=== PATIENT | male | born 1970 | race African-American/Black ===

== ENCOUNTER 2018-09-20 14:51 | Emergency (ER) | payer OTHER ==
[~2018-09-20] VITALS: Ht 177.8 cm; Wt 88.4 kg
[2018-09-20 15:16] VITALS: BP 146/97; PULSE 94; RESP 18; Ht 177.8 cm; Wt 88.4 kg
[2018-09-20] MEDS ORDERED: HYDR25TA6 PO (17:26)
--- NOTE | 2018-09-20 17:33 | ERD ---
ER Documentation Chief Complaint Chief Complaint here for htn, bp 146/97 HPI 40-year-old male presents for elevated blood pressure at home. He states that the blood pressures been elevated for about 10 days. He states that it has been averaging about 170/100. He does not have a history of hypertension. He states that he was seen by his primary care physician about a month ago and was noted to have 140/80 blood pressure. He denies any significant past medical history. Denies any symptoms currently. ROS All systems reviewed and are negative except as per history of present illness. Medications Home Meds Active Scripts Hydrochlorothiazide* (Hydrochlorothiazide*) 25 Mg Tab, 12.5 MG PO DAILY for elevated blood pressure, #30 TAB Prov:ISABELLA RADER DO 09/20/18 Allergies Allergies: Coded Allergies: No Known Allergy (Unverified , 09/20/18) PMhx/Soc Medical and Surgical Hx: pt denies Medical Hx, pt denies Surgical Hx Hx Alcohol Use: Yes Hx Substance Use: Yes Hx Tobacco Use: Yes Smoking Status: Current every day smoker Physical Exam Vitals Vital Signs Date Temp Pulse Resp B/P (MAP) Pulse Ox O2 O2 Flow FiO2 Time Delivery Rate 09/20/18 97.6 94 18 146/97 98 15:16 (113) Physical Exam Const: No acute distress Cardio: Regular rate and rhythm, no murmurs Abd: Soft, non tender, non distended. Normal bowel sounds Skin: No petechiae or rashes Back: No midline or flank tenderness Ext: No cyanosis, or edema Neur: Awake and alert Psych: Normal Mood and Affect Procedures/MDM Medical Decision Making: Patient presented for elevated blood pressure at home. He states that he was concerned about having a stroke. He states that the blood pressure measured at home has been 170/100. Last official read at his primary care doctor's office was about a month ago which was 140/80. Vital signs reviewed here in the ER and noted to be 146/97 Given the patient's age and the elevated blood pressure on multiple readings, patient started on hydrochlorothiazide and advised to follow with his primary care physician. Patient appeared well on physical exam. Prescription(s): Patient given prescription for hydrochlorothiazide. Patient advised to follow up with PCP in 1-2 days. Patient advised to return to ED for new or worsening symptoms. Patient stable on discharge from the ED. Disclaimer: Inadvertent spelling and grammatical errors are likely due to EHR/dictation software use and do not reflect on the overall quality of patient care. Also, please note that the electronic time recorded on this note does not necessarily reflect the actual time of the patient encounter. Departure Diagnosis: Primary Impression: Elevated blood pressure reading Condition: Fair Patient Instructions: High Blood Pressure (Hypertension) Referrals: COMM[facility]IN[facility] YOU HAVE RECEIVED A MEDICAL SCREENING EXAM AND THE RESULTS INDICATE THAT YOU DO NOT HAVE A CONDITION THAT REQUIRES URGENT TREATMENT IN THE EMERGENCY DEPARTMENT. FURTHER EVALUATION AND TREATMENT OF YOUR CONDITION CAN WAIT UNTIL YOU ARE SEEN IN YOUR DOCTORS OFFICE WITHIN THE NEXT 1-2 DAYS. IT IS YOUR RESPONSIBILITY TO MAKE AN APPOINTMENT FOR FOLOW-UP CARE. IF YOU HAVE A PRIMARY DOCTOR --you should call your primary doctor and schedule an appointment IF YOU DO NOT HAVE A PRIMARY DOCTOR YOU CAN CALL OUR PHYSICIAN REFERRAL HOTLINE AT IF YOU CAN NOT AFFORD TO SEE A PHYSICIAN YOU CAN CHOSE FROM THE FOLLOWING [facility] [address] [facility] [address] [facility] [address] [facility] [address] [facility] [address] [facility]. [facility]. [address] Additional Instructions: Call your primary care doctor TOMORROW for an appointment during the next 1-2 days.See the doctor sooner or return here if your condition worsens before your appointment time. ISABELLA RADER DO Sep 20, 2018 17:33
== END 2018-09-20 17:36 | disposition home or self-care (01) ==
LOC: FTE 14:51
DX: R03.0 Elevated blood-pressure reading, without diagnosis of hypertension (principal); F17.210 Nicotine dependence, cigarettes, uncomplicated
CPT/HCPCS: 99283